=== PATIENT | male | born 1990 | race Caucasian/White ===

== ENCOUNTER 2017-05-23 09:19 | Emergency (ER) | payer SELFPAY ==
[2017-05-23 09:26] VITALS: BP 138/75
== END 2017-05-23 11:20 | disposition home or self-care (01) ==
LOC: ED 09:19
DX: S13.4XXA Sprain of ligaments of cervical spine, initial encounter (principal); V49.9XXA Car occupant (driver) (passenger) injured in unspecified traffic accident, initial encounter; Y93.89 Activity, other specified; Y99.8 Other external cause status; Y92.89 Other specified places as the place of occurrence of the external cause